=== PATIENT | female | born 1965 | race Caucasian/White ===

== ENCOUNTER → 2016-06-25 | Outpatient (CLI) | payer BC | LOC: FIMAGING 11:14 | PROVIDERS: ATTEND Midwife | DX: D25.9 Leiomyoma of uterus, unspecified (principal) ==

== ENCOUNTER → 2016-12-15 | Outpatient (CLI) | payer BC | LOC: FIMAGING 15:23 | PROVIDERS: ATTEND Obstetrics & Gynecology | DX: Z12.31 Encounter for screening mammogram for malignant neoplasm of breast (principal) | CPT/HCPCS: G0202 ==